=== PATIENT | female | born 1980 | race African-American/Black ===

== ENCOUNTER 2020-11-05 07:02 | Outpatient (CLI) | payer OTHER, SELFPAY ==
[2020-11-05] MEDS: fentaNYL CITRATE INJ (*CRX) 100 MCG/2 ML VIAL 50 MCG IV PUSH (07:43)
--- NOTE | 2020-11-05 08:25 | W.PM.PROC2 ---
Procedure Note - Detailed Date of Procedure 11/05/20 Pre-op Diagnosis Cervical incompetence, cerclage Post-op Diagnosis same Procedure Performed cerclage removed Surgeon Alison Meehan MD Anesthesia local Indications cerclage Findings cerclage. Description of Procedure Speculum was placed in the vagina. The cerclage knot was grasped and raised. The base that was cut. Both sutures were cut and it was uncertain whether the entire cerclage was free. The surrounding tissue around the cervix was examined. A piece of the suture that was placed around the cervix was again visualized and grasped. The remainder of the cerclage piece was pulled out. The patient tolerated the procedure well. She is taking coverage stable condition. An area of the cervix was injected with lidocaine during the procedure. This was so the cervix could be grasped Firmly and sharply.. Estimated Blood Loss 10 Drains No Packing No Pathology none sent Complications No immediate complications Condition stable Disposition floor
[2020-11-05 08:29] VITALS: BP 111/67; PULSE 64; TEMP 36.8
[2020-11-05 08:45] VITALS: BP 114/64; PULSE 74
[2020-11-05 09:00] VITALS: BP 118/72; PULSE 76
[2020-11-05 09:15] VITALS: BP 117/61; PULSE 74
[2020-11-05 09:30] VITALS: BP 117/61; PULSE 74
== END 2020-11-05 09:30 | disposition home or self-care (01) ==
LOC: ANHOBOP 07:07 → ANHLDR 07:08
PROVIDERS: Visit Provider Obstetrics & Gynecology
DX: O24.419 Gestational diabetes mellitus in pregnancy, unspecified control (principal); Z3A.00 Weeks of gestation of pregnancy not specified
CPT/HCPCS: 59025; 99199; J3010

== ENCOUNTER 2020-11-15 00:01 | Inpatient (IN) | payer OTHER, SELFPAY ==
[2020-11-15] VITALS (75 sets, daily range): BP systolic 97–143; BP diastolic 44–101; PULSE 57–278; RESP 16; TEMP 36.4–36.8; O2SAT 98–100; BMI 30.4
[2020-11-15] MEDS: LACTATED RINGERS 1,000 ML 125 ML IV CONT ×3 (01:33→07:26)
[2020-11-15] MEDS: AMPICILLIN 2 GM/NS 100 ML 2 GM/100 ML BAG IVPB (01:33)
[2020-11-15] MEDS: OXYTOCIN 30 UNITS/NS 500 ML 30 UNITS/500 ML BAG IV CONT (01:34)
[2020-11-15 01:37] LABS: Glucose Point of Care 80 mg/dl (65-105)
--- NOTE | 2020-11-15 01:43 | LDADM ---
This patient, Corwin Horvath, was admitted to Labor/Delivery/Recovery 105 on 11/15/20 at 00:01. Plans for labor, pain management and were discussed with patient. Patient/family oriented to hospital policies and general routines including ID bracelet, bed and alarms, visiting hours, pain management, procedures, bathroom and other care routines, personal items, smoking policy, room service/diet and guest tray routines, security routines, and visiting hours. Patient/Family are encouraged to report perceived risks to care and to ask questions if they do not understand what they are told or what they should do. See OBIX for further documentation.
[2020-11-15 01:47] LABS: Basophils Percent Auto 0.5 % (0.2-1.2); Eosinophils Absolute Auto 0.1 K/mm3 (0-0.3); Eosinophils Percent Auto 1.4 % (0-4.4); Hematocrit 35.5 % (37.0-47.0); Hemoglobin 11.4 g/dL (12.0-15.0); Immature Granulocyte Percent A 1.2 % (0-0.5); Lymphocytes Absolute Auto 1.79 K/mm3 (0.9-3.2); Lymphocytes Percent Auto 21.5 % (18.3-44.2); Mean Corpuscular HGB Conc 32.1 g/dl (32-36); Mean Corpuscular Hemoglobin 29.3 pg (26-34); Mean Corpuscular Volume 91.3 fl (80-100); Mean Platelet Volume 10.2 fl (7.4-10.4); Monocytes Absolute Auto 0.6 K/mm3 (0.1-0.6); Monocytes Percent Auto 6.6 % (2.6-8.5); Neutrophils Absolute Auto 5.7 K/mm3 (1.3-6.7); Neutrophils Percent Auto 68.8 % (45.5-73.1); Platelet Count Result 294 k/mm3 (150-375); Red Blood Count 3.89 M/mm3 (4.2-5.4); Red Cell Distribution Width 14.2 % (11.5-14.5); White Blood Count 8.3 K/mm3 (4.5-10.0)
[2020-11-15] MEDS: AMPICILLIN 1 GM/NS 50 ML 1 GM/50 ML BAG IVPB ×2 (05:50→10:04)
[2020-11-15 05:57] LABS: Glucose Point of Care 83 mg/dl (65-105)
[2020-11-15 06:24] LABS: Rapid Plasma Reagin Non-Reactive (NonReactive)
[2020-11-15] MEDS: ONDANSETRON INJ 4 MG/2 ML VIAL IV PUSH (07:48)
--- NOTE | 2020-11-15 08:13 | WPDANESEPP ---
Anes - Eval Pre Procedure Procedure: labor epidural Date/Time: 11/15/20 08:13 Surgeon: Zoran Preop Diagnosis: labor pain Pre Op Diagnosis: Leaking Patient Data Age: 40 Gender: F Height: 1.73 m Weight: 91 kg Last Vital Signs Temp 36.8 C 11/15/20 07:30 Pulse 64 11/15/20 08:09 BP 120/68 11/15/20 08:09 Pulse Ox 98 11/15/20 07:49 Allergies Allergy/AdvReac Type Severity Reaction Status Date / Time No Known Allergies Allergy Verified 10/29/20 16:04 Laboratory Tests 11/15/20 11/15/20 11/15/20 01:19 01:21 01:21 WBC 8.3 K/mm3 K/mm3 (4.5-10.0) RBC 3.89 M/mm3 L M/mm3 (4.2-5.4) Hgb 11.4 g/dL L g/dL (12.0-15.0) Hct 35.5 % L % (37.0-47.0) MCV 91.3 fl fl (80-100) MCH 29.3 pg pg (26-34) MCHC 32.1 g/dl g/dl (32-36) RDW 14.2 % % (11.5-14.5) Plt Count 294 k/mm3 k/mm3 (150-375) MPV 10.2 fl fl (7.4-10.4) Immature Gran % (Auto) 1.2 % H % (0-0.5) Neut % (Auto) 68.8 % % (45.5-73.1) Lymph % (Auto) 21.5 % % (18.3-44.2) [place]inn % (Auto) 6.6 % % (2.6-8.5) Eos % (Auto) 1.4 % % (0-4.4) Baso % (Auto) 0.5 % % (0.2-1.2) Lymph # (Auto) 1.79 K/mm3 K/mm3 (0.9-3.2) [place]inn # (Auto) 0.6 K/mm3 K/mm3 (0.1-0.6) Eos # (Auto) 0.1 K/mm3 K/mm3 (0-0.3) Baso # (Auto) 0.0 K/mm3 K/mm3 (0.0-0.1) Abs Immat Gran (auto) 0.10 K/mm3 H K/mm3 (0.00-0.031) Absolute Neuts (auto) 5.7 K/mm3 K/mm3 (1.3-6.7) Absolute Nucleated RBC 0.0 K/mm3 K/mm3 (0.0-0.012) Nucleated RBC % 0.0 % % (0.0-0.2) POC Capillary Glucose 80 mg/dl mg/dl (65-105) RPR Non-reactive (NonReactive) Blood Type Antibody Screen 11/15/20 11/15/20 01:21 05:54 WBC RBC Hgb Hct MCV MCH MCHC RDW Plt Count MPV Immature Gran % (Auto) Neut % (Auto) Lymph % (Auto) [place] % (Auto) Eos % (Auto) Baso % (Auto) Lymph # (Auto) Linn # (Auto) Eos # (Auto) Baso # (Auto) Abs Immat Gran (auto) Absolute Neuts (auto) Absolute Nucleated RBC Nucleated RBC % POC Capillary Glucose 83 mg/dl mg/dl (65-105) RPR Blood Type O Positive Antibody Screen Negative : gestational age Patient hx anesthesia problems: none Family hx anesthesia problems: none [facility] Family History Family History Mother Diabetes mellitus Social History Social History Smoking status: Former smoker Tobacco type: cigarettes Second hand tobacco smoke exposure: No Substance use: never Spiritual care concerns: No Exam Day of Procedure 11/15/20 08:13 Patient weight: normal Heart: regular rate and rhythm Lungs: normal air movement Airway: Mallampati scale class II Neurological: alert and oriented
[2020-11-15 10:07] LABS: Glucose Point of Care 71 mg/dl (65-105)
--- NOTE | 2020-11-15 11:24 | PM.OBPRVD ---
OB - Delivery Note Procedure Delivery date: 11/15/20 Procedure: vaginal delivery events: Gestational Diabetes Intrapartal events: None Induction method: none Delivery augmentation: pitocin Delivery monitor: external FHT and external uterine Route of delivery: Laceration Description: None Specimen: Yes Quantitative Blood Loss (ml): 75 Anesthesia type: Epidural Disposition: floor Baby Date of : 11/15/20 Time of : 11:10 Weeks of gestation at delivery: 38 Infant gender: Male Weight (pounds): 7 Weight (ounces): 0 presentation: vertex position: Right Occiput Anterior Placenta delivery description: Spontaneous cord vessel description: 3 Vessels, Clamped/Cut and Delayed Cord Clamping score one minute: 8 score five minutes: 9 Narrative: mother and baby skin to skin in stable condition
[2020-11-15] MEDS: OXYTOCIN 30 UNITS/NS 500 ML 30 UNITS/500 ML BAG 125 UNITS IV CONT (11:32)
--- NOTE | 2020-11-15 15:28 | OBPPTRN ---
1453-Patient transferred to post room #292 via wheelchair. Support person present. Oriented to unit, room, information board, rooming in, admission packet and security measures. Patient verbalizes understanding.
[2020-11-16 00:40] VITALS: BP 113/56; PULSE 72; RESP 16; TEMP 36.8; O2SAT 98
[2020-11-16 03:50] VITALS: BP 100/62; PULSE 72; RESP 16; TEMP 36.8; O2SAT 100
[2020-11-16] MEDS: IBUPROFEN 600 MG TABLET PO ×2 (03:55→11:35)
[2020-11-16] MEDS: ACETAMINOPHEN 325 MG TABLET 650 MG PO (06:01)
[2020-11-16 06:06] LABS: Hematocrit 32.1 % (37.0-47.0); Hemoglobin 10.3 g/dL (12.0-15.0)
[2020-11-16 07:30] VITALS: BP 124/61; PULSE 60; RESP 16; TEMP 36.6; O2SAT 100
--- NOTE | 2020-11-16 07:46 | PM.OBPNVD ---
OB - PN: Subj Subjective Date/time seen: 11/16/20 07:46 Patient comments: no complaints and pain well controlled OB - PN: Obj Data Labs CBC & Chem 7: 11/16/20 03:52 Labs: Laboratory Results - last 24 hr 11/15/20 11/16/20 10:03 03:52 Hgb 10.3 L Hct 32.1 L POC Capillary Glucose 71 OB - PN A/P Plan day: 1 Plan: routine care Comments: Desires circumcision, consented. Time Spent With Patient Time: Total time spent is greater than 50% in coordination of care (as documented) at patient's floor/unit and/or counseling patient: Time with patient: less than 15 minutes Exam Narrative: NAD abdomen soft, nontender, fundus firm below the umbilicus Extremities nontender, 1+ edema
[2020-11-16] MEDS: TETANUS,DIPHTHERIA,AC PERTUSSIS ADULT (0.5 ML) BOOSTRIX IM (08:46)
[2020-11-16] MEDS: MULTIVIT/MIN/PREN/FOL AC/IRON TABLET 1 TAB PO (08:46)
--- NOTE | 2020-11-16 09:45 | PC.NURSE ---
Consult with pt., mother is on the phone. Mother reports pain with latch. Requested mother call out next feeding to work with latch.
--- NOTE | 2020-11-16 12:00 | PC.NURSE ---
Consult with pt., mother reports infant has been sleepy this morning due to circumcision. did not fed for 6 hours, then primary RN assisted with latch. Infant has fed for 30 minutes. Mother requested assist with waking infant to switch to other breast. When released latch crease noted to nipple. Discussed shallow latch and the importance of holding breast to assist with maintaining deep latch for her comfort and increased intake. Reviewed feeding cues, frequencies, duration of feedings, feeding elimination flow sheet, and signs of adequate intake. Demonstrated stimulation techniques to wake infant for feeding. Suggested to unwrap change diaper to wake. awoken with feeding cues noted. Assisted with infant to breast. Reviewed positioning/alignment, holding breast and asymmetrical latch on. was able to latch correctly. Infant nursed eagerly, with steady draws and occasional swallowing noted. Reviewed signs of a correct latch, effective nursing and suck swallow ratio. Infant was able to maintain latch without discomfort to mother. Mother reports she can feel the difference with deep latch. Nipple care reviewed. Instructed mother to call out for RN assistance if she is unable to latch for feeding or she has discomfort with nursing. Instructed feeding should be initiated three hours from start of last feeding or if feeding cues are noted before. Mother voiced understanding of information shared. .
--- NOTE | 2020-11-16 15:06 | WPDANLDPN2 ---
Anes-Prog Note L&D Date/Time: 11/16/20 15:06 Comfortable throughout: labor and delivery Neuraxial method: epidural Epidural/Spinal procedure site: clean & non-tender Neuro status: Neuro function grossly intact. Cardiovascular status: normal Respiratory status: normal Airway patency: baseline Mental status: baseline Post-Op hydration status: normal Vital Signs: Last Vital Signs Temp 36.6 C 11/16/20 07:30 Pulse 60 11/16/20 07:30 Resp 16 11/16/20 07:30 BP 124/61 11/16/20 07:30 Pulse Ox 100 11/16/20 07:30 Pain score (VAS): 2 Post-procedural complaints: none Patient feedback: Patient satisfied with anesthetic care.
[2020-11-16 18:46] VITALS: BP 113/66; PULSE 67; RESP 16; TEMP 36.7; O2SAT 97
--- NOTE | 2020-11-17 07:45 | PM.OBPNVD ---
OB - PN: Subj Subjective Date/time seen: 11/17/20 07:45 Patient comments: no complaints baby status: doing well and nursing well [place] feeding status: exclusively breast feeding OB - PN: Obj Data Labs CBC & Chem 7: 11/16/20 03:52 OB - PN A/P Plan day: 2 Plan: routine care and discharge home Time Spent With Patient Time: Total time spent is greater than 50% in coordination of care (as documented) at patient's floor/unit and/or counseling patient: Time with patient: less than 15 minutes Exam Narrative: NAD abdomen soft, nontender, fundus firm below the umbilicus Extremities nontender, 1+ edema
--- NOTE | 2020-11-17 07:47 | P.DS_ITS ---
DS: Admitting Diagnosis Admitting Diagnosis term , labor DS: Discharge Diagnosis Discharge Diagnosis (1) , delivered: Code(s): O80 - Encounter for full-term uncomplicated delivery Status: Acute DS: Summary Hospital Course Reason for hospitalization: labor at term Hospital Course: Corwin had an uncomplicated labor, delivery, and course. Status at Discharge Functional status at discharge: independent ambulation Time Spent with Patient Time attestation: Total time spent providing and/or coordinating discharge services: DS: Data Data Completed and Pending Pending studies at discharge: Pending at discharge 11/15/20 11:50 Surgical [PTH] Routine Discharge Plan Discharge Attending physician on discharge: Kalee Bañuelos Discharging Clinician: Kalee Bañuelos Anticipated Discharge Date/Time: 11/17/20 11:00 Patient Disposition: Home, Self-Care Activity: may shower and pelvic rest Diet: as tolerated Patient Instructions: Antibiotic Form Stand Alone Forms: General Discharge Information Follow-up/Referrals: Alison Meehan MD [Physician] - 1 Week Discharge Medications: No Action No Home Medications RF: 0 Date of admission: 11/15/20 00:01 Primary Care Provider: PHYSICIAN,JAVA [employer]OPER Admitting Provider: Alison Meehan Attending physician on admission: Alison Meehan Condition: Stable
[2020-11-17 09:00] VITALS: BP 126/62; PULSE 68; RESP 16; TEMP 36.8; O2SAT 100
--- NOTE | 2020-11-17 09:00 | PC.NURSE ---
Mother is able to independently latch with appropriate positioning/alignment. Infant has had a few periods of 5 hours without feeding. Advised mother to wake to feed every three hours, if infant is not feeding by 5 hours infant should be supplemented EBM/formula. Infant has had several effective feedings in the past 24 hours with supplementation. will return tomorrow for a bili and weight check. Feeding plan will be to supplement 15mls after each feeding until seen by follow up RN. Mother states she feels confident to continue current feeding plan at home. Reviewed transition to breast milk, signs of adequate intake, and engorgement/relief. Instructed to call ICP if intake/output less than required. Reviewed regular medications mother is taking. Information provided per Bernadette. Reviewed community resources on the [employer] website and in the Mom/Baby guide. Information on outpatient services provided. Mother has no further questions at this time. Mother has a pump thru her insurance she will pump after each feeding to stimulate milk supply and offer and part of supplement.
[2020-11-17] MEDS: MULTIVIT/MIN/PREN/FOL AC/IRON TABLET 1 TAB PO (09:04)
[2020-11-17] MEDS: IBUPROFEN 600 MG TABLET PO (09:10)
--- NOTE | 2020-11-17 11:10 | PC.NURSE ---
Patient viewed the discharge video Mother & Baby Care, The First Two Weeks . Patient was given the opportunity and encouraged to ask questions. Patient verbalized understanding of information shared and has been given the mother/baby guide for home reference.
== END 2020-11-17 13:43 | disposition home or self-care (01) | DRG 560 ==
LOC: ANHLDR 01:05 → ANHOB2 11-17 07:46 → ANHLDR 11-18 12:20 → ANHOB2 11-18 12:20
PROVIDERS: Advanced Practice Midwife; Admitting Provider Obstetrics & Gynecology; Visit Provider Obstetrics & Gynecology
DX: O24.429 Gestational diabetes mellitus in childbirth, unspecified control (principal); O99.824 Streptococcus B carrier state complicating childbirth; Z3A.38 38 weeks gestation of pregnancy; Z37.0 Single live birth
CPT/HCPCS: 36415; 82948; 84112; 85014; 85018; 85025; 86592; 86850; 86900; 86901; 88307; 90715; A9270; J0290; J2405; J2590; J2795; J7120